=== PATIENT | female | born 1980 | race Caucasian/White ===

== ENCOUNTER 2023-11-19 19:56 | Emergency (ER) | payer OTHER, SELFPAY ==
[2023-11-19 20:09] VITALS: BP 115/81
[2023-11-19 20:29] LABS: Urine Albumin Negative (Neg - Trace); Urine Bilirubin Negative (Negative); Urine Character Clear (Clear); Urine Color Yellow; Urine Glucose Negative (Negative); Urine Ketone Negative (Negative); Urine Leukocyte Trace (Negative); Urine Nitrite Negative (Negative); Urine Occult Blood Negative (Negative); Urine Urobilinogen Negative (Neg - 1+); Urine pH 6.5 (5.0-9.0)
[2023-11-19 20:43] LABS: Urine Bacteria Few (Negative); Urine Red Blood Cell 0-2 /HPF (0-2); Urine White Cell 0-2 /HPF (0-5)
[2023-11-19 22:11] LABS: HCG, Urine Qualitative Screen Negative
--- NOTE | 2023-11-19 23:34 | ED.GENMED ---
History of Present Illness
<DO Alma Delia Oliver Filed: 11/21/23 09:17>
General
Chief Complaint: Abdominal Symptoms
Source: patient
Time Seen by Provider: 11/19/23 23:23
Travel History
Have you had any contact with someone who has COVID-19?: No
Do you have any symptoms of coronavirus? Fever > 100 degrees, chills, cough, shortness of breath, sore throat, loss of taste or smell, muscle aches, or headache?: No
History of Present Illness
History of Present Illness:
43-year-old female presents to the emergency room complaining of abdominal pain. Pain is located in her lower abdomen/suprapubic area. No vaginal discharge. Patient just completed a course of metronidazole for bacterial vaginosis. Patient has
had her appendix removed. Pain started fairly suddenly earlier today. No fever.
Past History
<DO Alma Delia Oliver Filed: 11/21/23 09:17>
Past History
ED Past Medical History: Psychiatric (Antidepressant)
ED Past Surgical History: Appendectomy and (�3)
Social History
Tobacco: Non-smoker
Alcohol: None
Personal: Single
Living: with family
Employment: Not employed
Family History
Family History: Negative Early CAD or Sudden
Phy Exam
<DO Alma Delia Oliver Last Filed: 11/21/23 09:17>
Physical Exam
Physical Exam:
General: Awake, Alert, Oriented X3. No acute distress.
Vitals: unremarkable
Head: Atraumatic
Eyes: Pupils equal, EOMI
Throat: Airway intact, no exudates
Neck: Trachea midline
Lungs: Clear and equal b/l
Heart: Regular rate, no murmurs
Abd: Soft, tenderness palpation lower abdomen particularly in the suprapubic region, No pulsatile mass
Neuro: Nonfocal
Skin: Warm, dry, no rash
Extremities: pulses equal b/l, no edema
Course
Jonlt;Tha Ortiz, DO - Last Filed: 11/21/23 09:17>
Orders/Labs/Results
Orders:
Orders
11/19/23 20:17
HCG, Urine Qualitative Screen Urgent
Date Specimen was Collected: 11/19/23
Time Specimen was Collected: 20:13
Comment: ADD ON
Urinalysis Reflex To Culture Urgent
Date Specimen was Collected: 11/19/23
Time Specimen was Collected: 20:13
Urine Microscopic Reflex Cult Urgent
11/19/23 21:20
Add On- LAB Urgent
Tests Added?: HCG urine
US Pelvis W Transvag Combined Urgent
Comment:
Reason For Exam: pubic pain
11/19/23 23:33
Ibuprofen [Motrin] 600 mg PO NOW STA
11/20/23 01:34
CT Abd/pelvis W Iv Cont Urgent
Comment:
Reason For Exam: lower abd pain
11/20/23 01:38
Basic Metabolic Panel Urgent
Complete Blood Count/With Diff Urgent
11/20/23 03:25
Amoxicillin 875 mg/Clav 125 mg [Augmentin 875 mg/125 mg] 1 tablet PO NOW STA
Abnormal Lab Results
11/19/23 11/20/23
20:17 01:38
WBC 13.1 H 10^3/uL
(4.8-10.8)
RBC 4.19 L 10^6/uL
(4.20-5.40)
Hct 35.0 L %
(37.0-47.0)
Abs Immat Gran (auto) 0.1 H 10^3/uL
(0-0.05)
Absolute Neuts (auto) 8.9 H 10^3/uL
(1.4-6.5)
Absolute Monos (auto) 1.0 H 10^3/uL
(0.1-0.6)
Glucose 102 H mg/dl
(70-99)
Leukocyte Esterase Rfl Trace A
(Negative)
Urine Bacteria (Reflex) Few A
(Negative)
11/20/23 01:38
11/20/23 01:38
Vital Signs
Initial and Last Documented VS:
Initial Vital Signs
Temp Pulse Resp BP Pulse Ox
99.2 F 90 16 115/81 98
11/19/23 20:09 11/19/23 20:09 11/19/23 20:09 11/19/23 20:09 11/19/23 20:09
Last Documented Vital Signs
Temp Pulse Resp BP Pulse Ox
98.5 F 84 14 133/75 98
11/19/23 23:46 11/20/23 03:40 11/20/23 03:40 11/20/23 03:40 11/20/23 03:40
<Lauren Mar MD - Last Filed: 11/20/23 03:26>
Orders/Labs/Results
Orders:
Orders
11/19/23 20:17
HCG, Urine Qualitative Screen Urgent
Date Specimen was Collected: 11/19/23
Time Specimen was Collected: 20:13
Comment: ADD ON
Urinalysis Reflex To Culture Urgent
Date Specimen was Collected: 11/19/23
Time Specimen was Collected: 20:13
Urine Microscopic Reflex Cult Urgent
11/19/23 21:20
Add On- LAB Urgent
Tests Added?: HCG urine
US Pelvis W Transvag Combined Urgent
Comment:
Reason For Exam: pubic pain
11/19/23 23:33
Ibuprofen [Motrin] 600 mg PO NOW STA
11/20/23 01:34
CT Abd/pelvis W Iv Cont Urgent
Comment:
Reason For Exam: lower abd pain
11/20/23 01:38
Basic Metabolic Panel Urgent
Complete Blood Count/With Diff Urgent
11/20/23 03:25
Amoxicillin 875 mg/Clav 125 mg [Augmentin 875 mg/125 mg] 1 tablet PO NOW STA
Abnormal Lab Results
11/19/23 11/20/23
20:17 01:38
WBC 13.1 H 10^3/uL
(4.8-10.8)
RBC 4.19 L 10^6/uL
(4.20-5.40)
Hct 35.0 L %
(37.0-47.0)
Abs Immat Gran (auto) 0.1 H 10^3/uL
(0-0.05)
Absolute Neuts (auto) 8.9 H 10^3/uL
(1.4-6.5)
Absolute Monos (auto) 1.0 H 10^3/uL
(0.1-0.6)
Glucose 102 H mg/dl
(70-99)
Leukocyte Esterase Rfl Trace A
(Negative)
Urine Bacteria (Reflex) Few A
(Negative)
11/20/23 01:38
11/20/23 01:38
Vital Signs
Initial and Last Documented VS:
Initial Vital Signs
Temp Pulse Resp BP Pulse Ox
99.2 F 90 16 115/81 98
11/19/23 20:09 11/19/23 20:09 11/19/23 20:09 11/19/23 20:09 11/19/23 20:09
Last Documented Vital Signs
Temp Pulse Resp BP Pulse Ox
98.5 F 84 14 133/75 98
11/19/23 23:46 11/20/23 03:40 11/20/23 03:40 11/20/23 03:40 11/20/23 03:40
<Tha Ortiz DO - Last Filed: 11/21/23 09:17>
MDM/Problems Addressed
Differential Diagnosis Includes:
ruptured ovarian cyst, kidney stone, diverticulitis
MDM/Problems Addressed:
u/s neg for acute pathology. CT ordered which shows diverticulitis. Pt suitable for outpatient management with oral Augmentin.
<Tah Ortiz DO - Last Filed: 11/21/23 09:17>
*Radiology
Radiology exam reviewed: radiology read reviewed
<Lauren Mar MD - Last Filed: 11/20/23 03:26>
*Critical Care Note
Total Time (30-74mins, 75-104mins- exclusive of procedures): Not Applicable
<Lauren Mar MD - Last Filed: 11/20/23 03:26>
Update Note
Update Note:
ct VISION dR MORALES--ACUTE UNCOMPLICATED SIGMOID DIVERTICULITIS. CASE D/W PT AND S.O. AT BEDSIDE, AWARE OF IMPORT OF F/U AND REASONS TO RTED. WELL APPEARING, NONTOXIC, NO V.
ED Attending Note
<Tha Ortiz DO - Last Filed: 11/21/23 09:17>
-
Portions of this chart may have been created with voice recognition software.� Occasional wrong word or��sound alike� substitutions may have occurred due to the inherent limitations of voice recognition software.
Discharge Plan
Departure
Patient Disposition: Home (Routine Discharge)
Date of Disposition: 11/20/23
Time of Disposition: 03:21
Patient with high blood pressure during this ER visit?: Yes
Condition: Good
Discharge Problem:
Diverticulitis, Abdominal pain
Instructions: Diverticulitis (DC), BLOOD PRESSURE
Prescriptions:
New
amoxicillin-pot clavulanate 875-125 mg tablet
1 tab PO BID Qty: 14 0RF
No Action
sucralfate [Carafate] 1 GM/10 ML suspension
1 gm PO ACHS Qty: 560 0RF
pantoprazole 40 MG tablet,delayed release (DR/EC)
40 mg PO DAILY Qty: 30 0RF
diclofenac potassium 50 MG tablet
50 mg PO BID Qty: 20 0RF
Referrals:
Isabella Zapata MD [Active] - Next open appointment
Nina Tanner CRNP [Family Provider] -
Activity Restrictions/Additional Instructions:
IF YOU DEVELOP INCREASING/NEW PAIN, FEVER, VOMITING, BLEEDING, OR OTHER WORRISOME SIGNS, GO TO THE ER IMMEDIATELY!
Interventions
Interventions:
*Risk Screen - Suicide Last Done: 11/19/23 20:09
*General Assessment Last Done: 11/19/23 20:09
*Neglect/Abuse Screening Last Done: 11/19/23 20:09
ED- Fall Risk Assessment Last Done: 11/19/23 23:35
*ED COVID-19 Vaccine History Last Done: 11/20/23 03:40
*Nursing Disposition Last Done: 11/20/23 03:40
CL-Didcgr-Ccpzvgzspn Assessment Last Done: 11/19/23 23:35
Discharge Date and Time
Discharge Date/Time: 11/20/23 02:40
Print Language: [place]
[2023-11-19 23:46] VITALS: BP 126/66
[2023-11-19] MEDS: MOTRIN 600 MG PO (23:47)
[2023-11-20 01:38] VITALS: BP 107/55
[2023-11-20 01:56] LABS: % Basophils 0.4 % (0-2); % Eosinophils 0.7 % (0-6); % Immature Granulocytes 0.4 % (0-0.5); % Lymphocytes 23.4 % (20.5-51.1); % Monocytes 7.4 % (1.7-9.3); % Neutrophils 67.7 % (42.2-75.2); Absolute Basophils 0.1 10^3/uL (0-0.2); Absolute Eosinophils 0.1 10^3/uL (0-0.7); Absolute Immature Granulocytes 0.1 10^3/uL (0-0.05); Absolute Lymphocytes 3.1 10^3/uL (1.2-3.4); Absolute Neutrophils 8.9 10^3/uL (1.4-6.5); Hemoglobin 12.7 g/dL (12.0-16.0); Mean Corp Hgb Conc. 36.3 g/dL (33.0-37.0); Mean Corpuscular Hgb 30.3 pg (27.0-31.0); Mean Corpuscular Volume 83.5 fL (81.0-99.0); Mean Platelet Volume 9.9 fL (7.4-10.4); Nucleated Red Blood Cells % 0 %; Platelet Count 257 10^3/uL (130-400); Red Blood Cell Count 4.19 10^6/uL (4.20-5.40); Red Cell Dist. Width 12.1 % (11.5-14.5); White Blood Cell Count 13.1 10^3/uL (4.8-10.8)
[2023-11-20 02:09] LABS: Blood Urea Nitrogen 10 mg/dl (7-17); Calcium 8.9 mg/dl (8.4-10.2); Carbon Dioxide 25 mmol/L (22-30); Chloride 106 mmol/L (98-107); Glucose 102 mg/dl (70-99); Sodium 138 mmol/L (135-145); eGFR > 60.00
[2023-11-20] MEDS: AUGMENTIN 875 MG/125 MG 1 TABLET PO (03:38)
[2023-11-20 03:40] VITALS: BP 133/75
== END 2023-11-20 02:40 | disposition home or self-care (01) ==
LOC: EMR 19:56
PROVIDERS: Emergency Medicine; EMERGENCY PHYSICIAN Emergency Medicine; FAMILY PHYSICIAN Nurse Practitioner
DX: K57.32 Diverticulitis of large intestine without perforation or abscess without bleeding (principal); R10.9 Unspecified abdominal pain; Z90.49 Acquired absence of other specified parts of digestive tract
CPT/HCPCS: 99284; 74177; 76830; 76856; 80048; 81003; 81015; 81025; 85025; Q9967

== ENCOUNTER 2024-03-30 13:11 | Emergency (ER) | payer OTHER, SELFPAY ==
[2024-03-30 13:13] VITALS: BMI 32.5
--- NOTE | 2024-03-30 13:25 | ED.GENMED ---
History of Present Illness
General
Chief Complaint: Chest Pain
Source: patient
Time Seen by Provider: 03/30/24 13:12
History of Present Illness
History of Present Illness:
43-year-old female presents the emergency room complaint chest pain. Patient states that she was sitting at her computer at 9 AM when she had an onset of discomfort in her anterior chest which describes as a tightness. It was associated with a
sensation of lightheadedness or dizziness. She felt unsteady when she walked. She denies any associated shortness of breath, nausea or diaphoresis. The chest discomfort does not radiate. She denies any recent travel or hospitalizations. No
recent surgeries. The pain is not made worse by deep inspiration. Since the onset of the discomfort it has been coming and going. It will be present for a minute or so and then go away. It does not appear related to any sort of activity or
exertion. The lightheaded feeling is mostly gone. She denies any headache.
Past History
Past History
ED Past Medical History: Psychiatric (Antidepressant)
ED Past Surgical History: Appendectomy and (�3)
Social History
Tobacco: Non-smoker
Alcohol: None
Personal: Single
Living: with family
Employment: Not employed
Family History
Family History: Negative Early CAD or Sudden
Phy Exam
Physical Exam
Physical Exam:
General: Awake, Alert, Oriented X3. No acute distress.
Vitals: unremarkable
Head: Atraumatic
Eyes: Pupils equal, EOMI
Throat: Airway intact, no exudates
Neck: Trachea midline
Lungs: Clear and equal b/l
Heart: Regular rate, no murmurs
Abd: Soft, Nontender, No pulsatile mass
Neuro: Nonfocal
Skin: Warm, dry, no rash
Extremities: pulses equal b/l, no edema
Scores
Heart Score for Chest Pain Patients
STEMI patient?: No
History: Slightly or Non-Suspicious
ECG: Normal
Age: </= 45 years
Risk Factors: No Risk Factors
Troponin: </= Normal Limit
Heart Score for Chest Pain Patients: 0
Heart Score Risk: 2.5% MACE over next 6 weeks
Course
Orders/Labs/Results
Orders:
Orders
03/30/24 13:13
Electrocardiogram (*1) Urgent
Reason for Study: Chest Pain
EKG- Treatment ONCE
IV Insert/Care/Rem.- Treatment PRN
03/30/24 13:21
Complete Blood Count/With Diff Urgent
Comprehensive Metabolic Panel Urgent
HCG, Serum Qualitative Screen Urgent
Troponin I Urgent
03/30/24 13:24
Test Result ONCE
03/30/24 13:25
CR Chest - 2 Views Urgent
Comment:
Reason For Exam: chest pain
03/30/24 13:27
Add On- LAB Urgent
Tests Added?: hcg qualitative
03/30/24 13:21
03/30/24 13:21
Vital Signs
Initial and Last Documented VS:
Initial Vital Signs
Pulse Resp Pulse Ox
82 19 100
03/30/24 13:22 03/30/24 13:22 03/30/24 13:22
Last Documented Vital Signs
Temp Pulse Resp BP Pulse Ox
98.2 F 82 16 102/64 99
03/30/24 13:23 03/30/24 15:15 03/30/24 15:15 03/30/24 15:00 03/30/24 15:15
MDM/Problems Addressed
Differential Diagnosis Includes:
Acute coronary syndrome, pneumothorax, chest wall strain, GERD
MDM/Problems Addressed:
Patient presents with vague chest pain. EKG shows no acute ischemic changes. Labs are unremarkable. Chest x-ray is unremarkable. Patient remained stable here. Recommend outpatient follow-up with her primary care doctor for further eval ration.
*Radiology
Radiology exam reviewed: preliminary read by ED provider (No acute disease by my review of the patient's chest x-ray)
*Pulse Oximetry
Patient hypoxic: no
*EKG
Interpreted by ED Provider?: Yes
Interpretation: normal
Heart Rate: 79
Rate: normal
Rhythm: sinus
[place]: normal axis
Interval: normal interval
QRS Pattern: normal QRS
Ischemia: no ischemia
*Broaching Machine Set Up Operator Interpretation
Rate: normal
Interpretation: normal
Heart Rate: 79
Rhythm: sinus
*Critical Care Note
Total Time (30-74mins, 75-104mins- exclusive of procedures): Not Applicable
Patient Management
Social determinants of health affecting care: Strong social support
ED Attending Note
-
Portions of this chart may have been created with voice recognition software.� Occasional wrong word or��sound alike� substitutions may have occurred due to the inherent limitations of voice recognition software.
Discharge Plan
Departure
Patient Disposition: Home (Routine Discharge)
Date of Disposition: 03/30/24
Time of Disposition: 15:12
Patient with high blood pressure during this ER visit?: Yes
Condition: Good
Discharge Problem:
Chest pain
Instructions: Chest Pain PCP Follow Up, BLOOD PRESSURE
Prescriptions:
No Action
sucralfate [Carafate] 1 GM/10 ML suspension
1 gm PO ACHS Qty: 560 0RF
pantoprazole 40 MG tablet,delayed release (DR/EC)
40 mg PO DAILY Qty: 30 0RF
diclofenac potassium 50 MG tablet
50 mg PO BID Qty: 20 0RF
amoxicillin-pot clavulanate 875-125 mg tablet
1 tab PO BID Qty: 14 0RF
Referrals:
NONE,* [Family Provider] -
Interventions
Interventions:
*Risk Screen - Suicide Last Done: 03/30/24 13:13
*General Assessment Last Done: 03/30/24 13:13
*Neglect/Abuse Screening Last Done: 03/30/24 13:13
ED- Fall Risk Assessment Last Done: 03/30/24 15:30
*ED COVID-19 Vaccine History Last Done: 03/30/24 13:13
*Nursing Disposition Last Done: 03/30/24 15:30
ED- Cardiac Assessment Last Done: 03/30/24 13:13
Discharge Date and Time
Discharge Date/Time: 03/30/24 15:31
Print Language: WEL[place]
[2024-03-30 13:37] LABS: % Basophils 0.4 % (0-2); % Eosinophils 0.2 % (0-6); % Immature Granulocytes 0.2 % (0-0.5); % Lymphocytes 28.3 % (20.5-51.1); % Monocytes 5.7 % (1.7-9.3); % Neutrophils 65.2 % (42.2-75.2); Absolute Lymphocytes 2.3 10^3/uL (1.2-3.4); Absolute Monocytes 0.5 10^3/uL (0.1-0.6); Absolute Neutrophils 5.3 10^3/uL (1.4-6.5); Hematocrit 40.2 % (37.0-47.0); Hemoglobin 14.3 g/dL (12.0-16.0); Mean Corp Hgb Conc. 35.6 g/dL (33.0-37.0); Mean Corpuscular Hgb 29.9 pg (27.0-31.0); Mean Corpuscular Volume 83.9 fL (81.0-99.0); Mean Platelet Volume 9.5 fL (7.4-10.4); Nucleated Red Blood Cells % 0 %; Platelet Count 301 10^3/uL (130-400); Red Blood Cell Count 4.79 10^6/uL (4.20-5.40); Red Cell Dist. Width 11.7 % (11.5-14.5); White Blood Cell Count 8.1 10^3/uL (4.8-10.8)
[2024-03-30 13:51] LABS: ALT (SGPT) 16 U/L (0-35); AST (SGOT) 18 U/L (14-36); Albumin 4.5 g/dl (3.5-5.0); Alkaline Phosphatase 50 U/L (38-126); Blood Urea Nitrogen 9 mg/dl (7-17); Calcium 10.1 mg/dl (8.4-10.2); Carbon Dioxide 30 mmol/L (22-30); Chloride 100 mmol/L (98-107); Estimated Creatinine Clearance 102 ml/min; Glucose 94 mg/dl (70-99); Potassium 4.5 mmol/L (3.5-5.1); Sodium 139 mmol/L (135-145); Total Bilirubin 0.6 mg/dl (0.2-1.3); Total Protein 7.1 g/dl (6.3-8.2); eGFR > 60.00
[2024-03-30 13:55] LABS: HCG, Serum Qualitative Screen Negative
[2024-03-30 14:00] LABS: Troponin I < 0.012 ng/ml
[2024-03-30 14:54] VITALS: BP 119/79; BP 139/81
[2024-03-30 15:00] VITALS: BP 102/64
== END 2024-03-30 15:31 | disposition home or self-care (01) ==
LOC: EMR 13:11
PROVIDERS: EMERGENCY PHYSICIAN Emergency Medicine
DX: R07.89 Other chest pain (principal); Z90.49 Acquired absence of other specified parts of digestive tract
CPT/HCPCS: 99285; 71046; 80053; 84484; 84703; 85025; 93005

== ENCOUNTER 2024-06-09 14:07 | Emergency (ER) | payer OTHER, SELFPAY ==
[2024-06-09 14:15] VITALS: BP 116/80
[2024-06-09 15:04] LABS: Amphetamines Negative (Negative); Barbiturates Negative (Negative); Benzodiazepines Negative (Negative); Buprenorphine Negative (Negative); Cocaine Negative (Negative); Marijuana Negative (Negative); Methadone Negative (Negative); Methamphetamines Negative (Negative); Opiates Negative (Negative); Phencyclidine Negative (Negative); Tricyclic Antidepressants Negative (Negative)
--- NOTE | 2024-06-09 15:21 | ED.GENMED ---
History of Present Illness
General
Chief Complaint: Crisis Evaluation
Source: patient
Exam Limitations: none
Time Seen by Provider: 06/09/24 15:10
Nursing documentation reviewed up to this point in time: agreed with
History of Present Illness
History of Present Illness:
Patient is a 44-year-old female with history anxiety, depression, PTSD presenting to the emergency department for crisis evaluation. Patient was found in her car earlier today by police just prior to an apparent suicidal attempt. Patient states
that she has been struggling recently with her mental health. She states that she believes those the liver will be 'better off without her around '. There was apparently an argument with her boyfriend this morning and then patient left and turned
off her phone. Patient reports that she plan to overdose on her Celebrex. However�patient states police found her while she was writing a letter and prior to taking any pills.
Patient states she has had suicidal thoughts for a while now which have progressively worsened. Patient denies any homicidal thoughts. Patient denies any visual/auditory hallucinations.
Patient denies any recreational drug use, alcohol abuse.
Patient is seeking inpatient management for her mental health.
Past History
Past History
ED Past Medical History: Psychiatric (Antidepressant)
ED Past Surgical History: Appendectomy and (�3)
Social History
Tobacco: Non-smoker
Alcohol: None
Personal: Single
Living: with family
Employment: Not employed
Family History
Family History: Negative Early CAD or Sudden
Review of Systems
Review of Systems
Allergies reviewed?: Yes
All Other Systems: ROS reviewed and negative except as documented in HPI and ROS
Phy Exam
Physical Exam
Physical Exam:
Vitals: Patient's vital signs are stable. Afebrile
General: Patient is tearful.
Skin: Warm and dry, no rashes or lesions
Head: Normocephalic, atraumatic
Throat: Protecting airway
Neck: Normal ROM, no cervical spine tenderness
Cardiac: Regular rate
Pulm: No apparent respiratory distress
Abdomen: Nondistended
Extremities: No evidence of cyanosis or edema
Neuro: Grossly intact
Psychiatric: Tearful. Cooperative. Answers questions.
Course
Orders/Labs/Results
Orders:
Orders
06/09/24 14:10
1:1 Observation - Suicide/ Violent Behavior As Directed
Crisis Consult Urgent
Reason for Consult: +SI with a plan
06/09/24 14:38
HCG, Urine Qualitative Screen Urgent
Date Specimen was Collected: 06/09/24
Time Specimen was Collected: 14:34
Urine Drug Abuse Screen Urgent
Date Specimen was Collected: 06/09/24
Time Specimen was Collected: 14:34
06/09/24 17:28
Add On- LAB Urgent
Comments:: urine (Urine is in lab)
Tests Added?: urine HCG test
06/09/24 20:17
Acetaminophen [Tylenol] 650 mg .ROUTE .STK-MED ONE
Acetaminophen [Tylenol] 650 mg PO NOW STA
Vital Signs
Initial and Last Documented VS:
Initial Vital Signs
Temp Pulse Resp BP Pulse Ox
97.8 F 88 16 116/80 98
06/09/24 14:15 06/09/24 14:15 06/09/24 14:15 06/09/24 14:15 06/09/24 14:15
Last Documented Vital Signs
Temp Pulse Resp BP Pulse Ox
98.6 F 76 18 112/81 98
06/09/24 16:12 06/09/24 20:00 06/09/24 20:00 06/09/24 20:00 06/09/24 20:00
MDM/Problems Addressed
Differential Diagnosis Includes:
Not limited to: Suicidal ideations, suicidal attempt, psychosis
MDM/Problems Addressed:
44-year-old female presents with police for crisis evaluation. Patient acutely suicidal and planning to overdose on her Celebrex prescription. She reports ongoing suicidal thoughts although was planning to follow through today. Rolande
did not take any of the Celebrex prior to arrival. She does have a history of suicidal thoughts. No current outpatient therapy or medications. Patient feels safe at home. Denies any HI, visual/auditory hallucinations. No substance abuse or
alcohol abuse. Patient has stable vital signs. On exam�she is tearful although cooperative. Cardio/pulmonary assessment unremarkable. Patient has excellent insight into her current mental health and voluntarily is seeking inpatient management. I
do feel patient is acutely suicidal and not safe to be discharged home. Patient will require inpatient psychiatric care. Crisis consult placed for input/bed placement. Dispo pending bed placement.
Update: Patient accepted to [facility]. Pending transfer. Patient remainas stable
Chronic conditions affecting care:
Depression, anxiety, PTSD
Acute Exacerbation and/or Progression of Chronic Illness:
Acutely suicidal
*Pulse Oximetry
Patient hypoxic: no
*EKG
Interpreted by ED Provider?: NA
*Harness Cutter Interpretation
Rate: Harness Cutter- N/A
*Critical Care Note
Total Time (30-74mins, 75-104mins- exclusive of procedures): Not Applicable
Patient Management
Social determinants of health affecting care: Poor outpatient follow-up
ED Attending Note
-
Portions of this chart may have been created with voice recognition software.� Occasional wrong word or��sound alike� substitutions may have occurred due to the inherent limitations of voice recognition software.
Discharge Plan
Departure
Patient Disposition: Psych Facility
Date of Disposition: 06/09/24
Time of Disposition: 20:16
Discharge Problem:
Suicidal ideation
Prescriptions:
No Action
sucralfate [Carafate] 1 GM/10 ML suspension
1 gm PO ACHS Qty: 560 0RF
pantoprazole 40 MG tablet,delayed release (DR/EC)
40 mg PO DAILY Qty: 30 0RF
diclofenac potassium 50 MG tablet
50 mg PO BID Qty: 20 0RF
amoxicillin-pot clavulanate 875-125 mg tablet
1 tab PO BID Qty: 14 0RF
Referrals:
NONE,* [Family Provider] -
Interventions
Interventions:
*Risk Screen - Suicide Last Done: 06/09/24 14:08
*General Assessment Last Done: 06/09/24 16:14
*Neglect/Abuse Screening Last Done: 06/09/24 14:15
*ED COVID-19 Vaccine History Last Done: 06/09/24 16:14
*Nursing Disposition Last Done: 06/09/24 21:10
ED-Psychological Assessment Last Done: 06/09/24 16:13
Discharge Date and Time
Discharge Date/Time: 06/09/24 21:11
Print Language: [email or web address]
[2024-06-09 16:12] VITALS: BP 117/82
[2024-06-09 16:13] VITALS: BMI 31.6
[2024-06-09 17:55] LABS: HCG, Urine Qualitative Screen Negative
[2024-06-09 20:00] VITALS: BP 112/81
[2024-06-09] MEDS: TYLENOL 650 MG PO (20:18)
== END 2024-06-09 21:11 ==
LOC: EMR 14:07
PROVIDERS: Physician Assistant; EMERGENCY PHYSICIAN Emergency Medicine
DX: R45.851 Suicidal ideations (principal); F32.A Depression, unspecified; F41.9 Anxiety disorder, unspecified; F43.10 Post-traumatic stress disorder, unspecified
CPT/HCPCS: 99285; 80306; 81025